=== PATIENT | female | born 1945 | race Caucasian/White ===

== ENCOUNTER → 2016-10-16 | Day surgery (SDC) | payer MEDICARE, BC ==
[~2016-10-16] VITALS: Ht 167.6 cm; Wt 83.2 kg
[~2016-10-16] MED LIST: ASPIR 8181 MG PO; BYDUREON2 MG SUB-Q; GLUCOPHAGE XR500 M1 PO; KAOPECTATE262 MG/15 PO; LEVOTHYROXINE125 MCG PO; LISINOPRIL20 MG PO; MEGA BIOTIN10000 MCG PO; METHADONE5 MG PO; NEURONTIN300 MG PO; PRAVASTATIN SOD80 MG PO; SOMA350 MG PO; TEGRETOL200 MG PO; TRICOR 160 MG160 MG PO; TYLENOL WITH C1 EACH PO; VITAMIN D-32000 UNI1 PO
== END ==
LOC: GPOC 10-14 15:00 → GEND 08:44 → GPOC 09:00
PROC: 0DB68ZX Excision of Stomach, Via Natural or Artificial Opening Endoscopic, Diagnostic (ICD-10-PCS; principal; 2016-10-16)
PROC: 0DB88ZX Excision of Small Intestine, Via Natural or Artificial Opening Endoscopic, Diagnostic (ICD-10-PCS; 2016-10-16)
PROC: 0DBE8ZX Excision of Large Intestine, Via Natural or Artificial Opening Endoscopic, Diagnostic (ICD-10-PCS; 2016-10-16)
DX: K31.89 Other diseases of stomach and duodenum (principal); K44.9 Diaphragmatic hernia without obstruction or gangrene; K21.9 Gastro-esophageal reflux disease without esophagitis; I25.10 Atherosclerotic heart disease of native coronary artery without angina pectoris; E78.00 Pure hypercholesterolemia, unspecified; I10 Essential (primary) hypertension; D50.9 Iron deficiency anemia, unspecified; E11.9 Type 2 diabetes mellitus without complications; Z79.891 Long term (current) use of opiate analgesic; Z79.899 Other long term (current) drug therapy
CPT/HCPCS: J2001; J7030